=== PATIENT | female | born 1995 | race Caucasian/White ===

== ENCOUNTER 2024-08-05 18:42 | Emergency (ER) | payer SELFPAY ==
--- NOTE | 2024-08-05 19:54 | PC.NURSE ---
NO ANSWER AT ER LOBBY OR OUTSIDE ER TO BE TRIAGE .
--- NOTE | 2024-08-05 20:18 | PC.NURSE ---
NO ANSWER AT ER LOBBY OR OUTSIDE ER.
== END 2024-08-05 21:11 | disposition left against medical advice (07) ==
PROVIDERS: Emergency Provider Emergency Medicine
DX: Z53.21 Procedure and treatment not carried out due to patient leaving prior to being seen by health care provider (principal)

== ENCOUNTER 2025-02-18 15:18 | Emergency (ER) | payer MEDICAID, SELFPAY ==
[2025-02-18 15:45] VITALS: BP 123/82; PULSE 94; RESP 21; TEMP 36.8; O2SAT 98
[2025-02-18 15:47] VITALS: PULSE 79
[2025-02-18 16:01] VITALS: BMI 17.3
[2025-02-18 16:38] LABS: Basophils # (Auto) 0.1 Thou/mm3 (0.0-0.2); Basophils % (Auto) 1 % (0-2.5); Eosinophils # (Auto) 0.0 Thou/mm3 (0.0-0.5); Eosinophils % (Auto) 1 % (0-10); Hematocrit 37.0 % (36.0-46.0); Hemoglobin 12.8 g/dL (12.0-16.0); Immature Granulocytes Auto 0.01 Thou/mm3 (0.00-0.00); Lymphocytes # (Auto) 1.8 Thou/mm3 (1.0-4.8); Lymphocytes % (Auto) 32 % (10-50); Mean Corpuscular HGB Conc 34.6 g/dl (31.0-37.0); Mean Corpuscular Hemoglobin 34.6 pg (25.0-35.0); Mean Corpuscular Volume 100 fL (80-100); Monocytes # (Auto) 0.4 Thou/mm3 (0.0-0.8); Monocytes % (Auto) 8 % (0-12); Neutrophils # (Auto) 3.3 Thou/mm3 (1.8-7.7); Neutrophils % (Auto) 59 % (37-80); Nucleated Red Blood Cell # 0.00 Thou/mm3 (0.00-0.00); Nucleated Red Blood Cell % 0 /100 WBC (0); Platelet Count 579 Thou/mm3 (140-440); RDW Standard Deviation 58.4 fL (36.4-46.3); Red Blood Count 3.70 Miln/mm3 (4.00-5.20); White Blood Count 5.6 Thou/mm3 (3.6-11.0)
[2025-02-18 16:58] LABS: Collection Type, Urine Clean Catch
--- NOTE | 2025-02-18 16:58 | EDNOTE_ITS ---
ED Seizures RME/HPI General Chief Complaint: Seizure Stated Complaint: SEIZURES; PASSING OUT Time Seen by Provider: 02/18/25 15:29 Arrival date/time: 02/18/25 15:18 RME / HPI RME / HPI Narrative: 30 year old female presents to the ED for seizure like activity today. Per at bedside, the patient was sitting watching tv when she suddenly began convulsing for ~ 1 minute. States shortly after she had difficulty staying awake and described the patient as going in and out . The additionally reported the patient was on a 5-day binge and today prior to seizing had drank a beer to prevent going into withdrawals. Patient reports she does not drink often and last drank 3 months ago prior to binge. In the ED only complains of feeling foggy . Denies recent illness, fevers, chills, abdominal pain, n/v/d, or urinary symptoms. Patient reports history of seizures occurring once a month and not currently on medications. Also states she has not consulted with neurologist. Related Data Previous Rx's ?Medication ?Instructions ?Recorded levetiracetam 500 mg tablet 500 mg PO BID #60 tabs 07/03 (Keppra) Allergies Allergy/AdvReac Type Severity Reaction Status Date / Time No Known Allergies Allergy Verified 08/05/24 18:45 Review of Systems Review of Systems Systems Reviewed: All systems reviewed, normal except as documented Past Medical History Past Medical History PSYCHO/SOCIAL: Positive Depression Family History FAMILY HISTORY: Negative Family Psychiatric Problems, Family Respiratory Disorders, Family Cardiac Disorders, Family Gastrointestinal Problems, Family Genitourinary Problems, Family Endocrine Disorders, Family Reproductive Disorders or Family Musculoskeletal Disorders Social History SMOKING STATUS: Current every day smoker ED Exam Narrative Physical exam: Constitutional: Awake, alert, nontoxic, no acute distress HEENT: NC, AT, EOMI Neck: Supple CV: RRR, no m/r/g Lungs: CTAB, no w/r/r, no respiratory distress. Abd: Soft, NT, NT, no HSM noted to palpation Extremities: No deformities, no edema noted Neuro: AAOx3, CN 2-12 GIBL, no acute neuro deficit noted. Skin: Warm, dry, intact Other Other exam information: 1810h: Vital signs have remained stable and has not developed a new symptoms. Patient does not clinically appear to be in alcohol withdrawal. States she last had a seizure 3 months ago and was evaluated at [facility] where she had a head CT that was negative. Patient adds she sometimes has seizures with drinking and while not drinking. I will start on Keppra and have her follow up with neurology. Strict return precautions given. Course Quality Measures none Orders Category Date Time Status Bedside Blood Glucose NOW Care 02/18/25 15:43 Completed Shingle Trimmer NOW Care 02/18/25 15:43 Completed Continuous Pulse Oximetry NOW Care 02/18/25 15:43 Completed EKG (ED ONLY) *Do not use* NOW Care 02/18/25 15:45 Completed Insert IV NOW Care 02/18/25 15:44 Completed Insert IV STAT Care 02/18/25 15:43 Completed EKG (ED Only) Stat Exams 02/18/25 15:45 Ordered Acetaminophen Stat Lab 02/18/25 16:19 Completed CBC Stat Lab 02/18/25 16:19 Completed Comprehensive Metabolic Panel Stat Lab 02/18/25 16:19 Completed Drug Screen,Urine Stat Lab 02/18/25 16:52 Completed HCG Qualitative,Urine Stat Lab 02/18/25 16:52 Completed Magnesium Stat Lab 02/18/25 16:19 Completed Troponin I Stat Lab 02/18/25 16:19 Completed Urinalysis Stat Lab 02/18/25 16:52 Completed levETIRAcetam INJ [Keppra Inj] Med 02/18/25 18:16 Discontinued 1,000 mg IVP X1 ONE Vital Signs Vital signs: Vital Signs Temperature 98.3 F 02/18/25 15:45 Pulse Rate 94 02/18/25 15:45 Respiratory Rate 21 H 02/18/25 15:45 Blood Pressure 123/82 02/18/25 15:45 Pulse Oximetry (%) 98 02/18/25 15:45 Oxygen Delivery Method Room Air 02/18/25 15:45 Pulse ox is 98% on room air which is adequate. Seizure MDM Narrative MDM Narrative:: Carmen Rob am scribing for and in the presence of Dr. Barros. Patient data External records reviewed:: None Clinical information provided by:: patient and spouse Social determinants that could affect healthcare access:: alcohol use Patient has the following chronic illnesses:: Seizures? How is presenting disease/condition affected by chronic disease/condition?: exacerbated by Evaluation data The following diagnostics were reviewed and interpreted by me:: lab results and EKG tracing(s) (02/18/2025 @ 15:37h. Normal sinus rhythm, rate 91, no STEMI. ) Lab and/or radiology exams considered but not ordered:: None Interpretation Summary: elevated transaminases Medications / Prescriptions Medications or Prescriptions considered but not ordered:: None Medication administrations:: Medication Administration History Discontinued Medications Levetiracetam (Levetiracetam Inj 100 Mg/Ml Vial 5ml) 1,000 mg IVP X1 ONE Stop: 02/18/25 18:17 Last Admin: 02/18/25 18:44 Dose: 1,000 mg Documented By: RD None Consultations Consultation(s) initiated? (list below): No Diagnosis Seizure Differential Diagnosis: intractable seizure disorder, febrile convulsion, focal seizure and epileptic seizure Most likely diagnosis given after review of the tests above:: Generalized seizure Hx of alcohol use Admission Indicated Admission indicated?: not indicated Admission Request Was there a request for admission?: No Disposition Plan Disposition Plan: Discharge Discharge Attestation Discharge Attestation: The patient and all family members were given an opportunity to ask questions and understood the discharge instructions. Discharge instructions specifically effects, indications for sooner follow up or return to the emergency department, and the expected course of current diagnosis. Patient condition: Stable Discharge Plan Plan Patient Disposition: HOME (Self Care) Patient condition on transfer: Stable Prescriptions/Referrals Prescriptions/Med Rec: New levetiracetam [Keppra] 500 mg tablet 500 mg PO BID Qty: 60 0RF Referrals: Clinton Valero MD [Primary Care Provider] - In 1 week Mio Saldivar MD [Physician] - In 1 week Problem List Clinical Impression: Generalized seizure, History of alcohol use Patient/Caregiver Discharge Instructions Education Materials: ED Seizure, Recurrent (Adult) Additional Instructions: Avoid driving until seen by neurology for evaluation of your seizures. Call neurology office for outpatient follow-up. Started on Keppra at this time until evaluated by neurology. Print Language: Albanian Stand Alone Forms: Veena Award Info., Patient Portal Info Letter
[2025-02-18 17:02] LABS: Acetaminophen < 2.0 mcg/mL (10.0-20.0); Alanine Aminotransferase 267 U/L (10-49); Albumin, Serum 4.3 gm/dL (3.5-5.0); Albumin/Globulin Ratio 2.0 (1.2-2.2); Alkaline Phosphatase 181 U/L (46-116); Anion Gap 13 (7-16); Aspartate Amino Transferase 491 U/L (0-34); BUN/Creatinine Ratio 10 Ratio (12-20); Bilirubin,Total 0.3 mg/dL (0.3-1.2); Blood Urea Nitrogen < 5 mg/dL (9-23); Calcium 8.7 mg/dL (8.3-10.6); Calcium (Corrected) 8.7 mg/dL (8.5-10.1); Carbon Dioxide 25.1 mMol/L (20.0-31.0); Chloride 99 mMol/L (98-107); Creatinine (Component) 0.5 mg/dL (0.6-1.3); Estimated Creatinine Clearance 124.7 mL/min (>60); Globulin 2.2 gm/dL (2.3-3.5); Glucose 113 mg/dL (74-106); Magnesium 1.6 mg/dL (1.6-2.6); Osmolality,Calculated 272 (275-295); Potassium 4.1 mMol/L (3.4-5.1); Sodium 137 mMol/L (136-145); Total Protein 6.5 gm/dL (5.7-8.2); Troponin I < 0.002 ng/mL (0.0-0.045); eGFR > 60 See Note
[2025-02-18 17:06] LABS: Bilirubin,Urine Negative (Negative); Blood,Urine Negative (Negative); Clarity,Urine Clear (Clear/Hazy); Color,Urine Colorless (Lt Yel-Yel); Glucose, Urine Negative (Negative); Ketones,Urine Negative (Negative); Leukocyte Esterase,Urine Negative (Negative); Nitrite,Urine Negative (Negative); PH,Urine 7.5 (5.0-7.0); Protein,Urine Negative (Neg - Trace); RBC,Urine 1 /hpf (0-3); Specific Gravity,Urine 1.008 (1.001-1.035); Squamous Epithelial Cell,Urine 1 /hpf (0-5); Urobilinogen,Urine Negative mg/dL (0.0-1.0); WBC,Urine 1 /hpf (0-5)
[2025-02-18 17:10] VITALS: BP 109/80; PULSE 79; RESP 17; TEMP 36.8; O2SAT 100
[2025-02-18 17:13] LABS: Amphetamine/Methamp Scrn,U Negative (Negative); Barbiturate Screen,Urine Positive (Negative); Benzodiazepines Screen,Urine Negative (Negative); Benzoylecgonine Screen, Ur Negative (Negative); Fentanyl Screen,Urine Negative (Negative); Opiate Screen,Urine Negative (Negative); THC Screen,Urine Negative (Negative)
[2025-02-18 17:42] LABS: HCG Qualitative,Urine Negative
[2025-02-18] MEDS: levETIRAcetam INJ 100 MG/ML VIAL 5ML 1000 MG IVP (18:44)
--- NOTE | 2025-02-18 19:24 | PC.NURSE ---
BOYFRIEND CALLED AND STATED HE WAS ON THE WAY TO [employer] [facility] (PATIENT).
== END 2025-02-18 19:34 | disposition home or self-care (01) ==
PROVIDERS: Emergency Provider Family Medicine; PCP Family Medicine
DX: R56.9 Unspecified convulsions (principal); F10.90 Alcohol use, unspecified, uncomplicated
CPT/HCPCS: 36415; 80053; 80307; 80329; 81001; 81025; 83735; 84484; 85025; 93005; 96374; 99283; J1953; G0480

== ENCOUNTER 2025-04-10 17:46 | Emergency (ER) | payer MEDICAID, SELFPAY ==
--- NOTE | 2025-04-10 17:56 | XR_ITS ---
Examination: AP chest single view Technique one AP portable upright chest single view April 10, 2025, 1806 hrs. Indications: Seizure today Findings: Normal heart size. No aspiration pneumonia. The osseous structures are intact. Upper thoracic levoscoliosis 12 degrees Impression: Negative for aspiration pneumonia
--- NOTE | 2025-04-10 17:56 | EKG_ITS ---
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
[2025-04-10 17:57] VITALS: BP 112/86; RESP 17; TEMP 36.8; O2SAT 96
--- NOTE | 2025-04-10 17:58 | PD.EDALCOH ---
ED Alcohol RME/HPI General Chief Complaint: Alcohol Stated Complaint: GOING THROUGH ALCOHOL W/D Time Seen by Provider: 04/10/25 17:56 Arrival date/time: 04/10/25 17:46 RME / HPI RME / HPI narrative: 30-year-old female patient came in for evaluation regarding witnessed tonic-clonic seizure lasting for few seconds. Patient is currently taking Keppra. Twice a day 500 mg. Patient told me that she is probably withdrawing from alcohol however her last drink of alcohol was 2 hours ago. She is trying to stop drinking alcohol and finding alcohol withdrawal place/center. Denies any homicidal or suicidal ideation. On my initial evaluation patient is alert and oriented x 3. Related Data Previous Rx's ?Medication ?Instructions ?Recorded levetiracetam 500 mg tablet 500 mg PO BID #60 tabs 02/18/25 (Keppra) Allergies Allergy/AdvReac Type Severity Reaction Status Date / Time No Known Allergies Allergy Verified 04/10/25 17:53 Review of Systems Review of Systems Narrative Review of Systems: Review of system reviewed and within normal limits except mentioned in HPI ED Exam Narrative Physical exam: VITAL SIGNS: Reviewed. GENERAL APPEARANCE: Alert and interactive, follows commands, no acute distress, HEAD AND FACE: Non-traumatic. ENT: PERRL, pink conjunctivitis, eyelid no trauma, Mucous membrane moist. NECK: Supple, nontender, no nuchal rigidity. CHEST: No tenderness, no crepitus, no paradoxical movement, no retractions. LUNGS: Clear, well ventilated, symmetric, no rales, no wheezing, no ronchi, no stridor, good breath sounds bilaterally. HEART: Regular rate, regular rhythm, no murmur, no gallops. ABDOMEN: Soft, positive bowel sounds, nondistended, no guarding, nontender, no rebound, no masses, RECTAL: Deferred. GENITAL: Deferred. NEUROLOGICAL: Gross motor function intact sensory function intact, Appropriate for age. MUSCULOSKELETAL: low back nontender, full range of motion. EXTREMITIES: Nontender, full range of motion. SKIN: Color pink, dry, no rash, no lacerations, no abrasions, no contusions. LYMPHATICS: Deferred. Course Quality Measures none Orders Category Date Time Status EKG (ED ONLY) *Do not use* NOW Care 04/10/25 17:56 Completed EKG (ED Only) Stat Exams 04/10/25 17:56 Draft XR chest 1V Stat Exams 04/10/25 17:56 Completed Alcohol, Blood Medical Stat Lab 04/10/25 18:00 Completed CBC Stat Lab 04/10/25 18:00 Completed Comprehensive Metabolic Panel Stat Lab 04/10/25 18:00 Completed Drug Screen,Urine Stat Lab 04/10/25 17:58 Ordered Partial Thromboplastin Time Stat Lab 04/10/25 18:00 Completed UA, C/S IF [Urinalysis, C/S if Indicated] Stat Lab 04/10/25 17:57 Ordered Midazolam Inj [Versed Inj] Med 04/10/25 17:56 Discontinued 2 mg IVP X1 ONE Ringers Lactated 1000 ml [Lactated Ringers] 1,000 ml Med 04/10/25 17:57 Discontinued IV 999 mls/hr Vital Signs Vital signs: Vital Signs Temperature 98.2 F 04/10/25 17:57 Respiratory Rate 17 04/10/25 17:57 Blood Pressure 112/86 H 04/10/25 17:57 Pulse Oximetry (%) 96 04/10/25 17:57 Oxygen Delivery Method Room Air 04/10/25 17:57 Discharge Plan Plan Patient Disposition: HOME (Self Care) Discharge Disposition comment: Stable Prescriptions/Referrals Prescriptions/Med Rec: No Action levetiracetam [Keppra] 500 mg tablet 500 mg PO BID Qty: 60 0RF Referrals: No Primary/Family,Physician [Primary Care Provider] - In 1 week Problem List Clinical Impression: Breakthrough seizure, Alcoholic intoxication Patient/Caregiver Discharge Instructions Discharge Activity: activity as tolerated Education Materials: ED Alcohol Intoxication Additional Instructions: Thank you for the opportunity for serving you today. You are stable for discharged . You are advised to: Follow-up with your PCP in 1 to 2 days Return to ED for worsening of symptoms Increase oral fluids Please continue taking your Keppra Refrain from drinking alcohol. Print Language: [place] Stand Alone Forms: Veena Award Info., Patient Portal Info Letter Alcohol MDM Narrative MDM Narrative: 30-year-old female patient came in for evaluation regarding witnessed tonic-clonic seizure lasting for few seconds. Patient is currently taking Keppra. Twice a day 500 mg. Patient told me that she is probably withdrawing from alcohol however her last drink of alcohol was 2 hours ago. She is trying to stop drinking alcohol and finding alcohol withdrawal place/center. Denies any homicidal or suicidal ideation. On my initial evaluation patient is alert and oriented x 3. Patient was given Versed and IV fluids, on reevaluation patient was noted to be alert oriented, no recurrence of seizure, patient's workup significant for alcohol level of 324. Patient was picked up by her mom. Patient laboratory workup all came back unremarkable except for mentioned earlier. Chest x-ray came back normal EKG showed sinus rhythm, ventricular at old 97 bpm, no ST segment elevation or depression noted. Patient is stable discharged home ambulatory. Patient data External records reviewed:: None Clinical information provided by:: patient Social determinants that could affect healthcare access:: alcohol use Patient has the following chronic illnesses:: Seizure disorder How is presenting disease/condition affected by chronic disease/condition?: exacerbated by Evaluation data The following diagnostics were reviewed and interpreted by me:: lab results, radiology exam(s) and EKG tracing(s) Lab and/or radiology exams considered but not ordered:: None Interpretation Summary: See results MDM Medications / Prescriptions Medications or Prescriptions considered but not ordered:: None Medication administrations:: Medication Administration History Discontinued Medications Lactated Ringer's (Lactated Ringers) 1,000 mls @ 999 mls/hr IV .Q1H1M ONE Stop: 04/10/25 18:57 Last Infusion: 04/10/25 19:54 Dose: Infused Documented By: Admin: 04/10/25 18:25 Dose: 999 mls/hr Documented By: SUZANNE Midazolam HCl (Midazolam Inj 1 Mg/Ml Vial 2 Ml) 2 mg IVP X1 ONE Stop: 04/10/25 17:57 Last Admin: 04/10/25 18:25 Dose: 2 mg Documented By: SUZANNE Versed, IV fluids Consultations Consultation(s) initiated? (list below): No Diagnosis Differential diagnosis alcohol: alcohol intoxication, alcohol withdrawal syndrome, alcohol withdrawal seizure and other (Breakthrough seizure) Most likely diagnosis given after review of the tests above:: Breakthrough seizure, alcoholic intoxication Admission Indicated Admission indicated?: not indicated Admission Request Was there a request for admission?: No Disposition Plan Disposition Plan: Discharge Discharge Attestation Discharge Attestation: The patient and all family members were given an opportunity to ask questions and understood the discharge instructions. Discharge instructions specifically effects, indications for sooner follow up or return to the emergency department, and the expected course of current diagnosis. Patient condition: Stable
[2025-04-10 18:08] LABS: Basophils # (Auto) 0.0 Thou/mm3 (0.0-0.2); Basophils % (Auto) 1 % (0-2.5); Eosinophils # (Auto) 0.0 Thou/mm3 (0.0-0.5); Eosinophils % (Auto) 0 % (0-10); Hematocrit 41.5 % (36.0-46.0); Hemoglobin 14.4 g/dL (12.0-16.0); Immature Granulocytes Auto 0.02 Thou/mm3 (0.00-0.00); Lymphocytes # (Auto) 2.1 Thou/mm3 (1.0-4.8); Lymphocytes % (Auto) 30 % (10-50); Mean Corpuscular HGB Conc 34.7 g/dl (31.0-37.0); Mean Corpuscular Hemoglobin 32.9 pg (25.0-35.0); Mean Corpuscular Volume 95 fL (80-100); Monocytes # (Auto) 0.6 Thou/mm3 (0.0-0.8); Monocytes % (Auto) 8 % (0-12); Neutrophils # (Auto) 4.1 Thou/mm3 (1.8-7.7); Neutrophils % (Auto) 60 % (37-80); Nucleated Red Blood Cell # 0.00 Thou/mm3 (0.00-0.00); Nucleated Red Blood Cell % 0 /100 WBC (0); Platelet Count 320 Thou/mm3 (140-440); RDW Standard Deviation 51.0 fL (36.4-46.3); Red Blood Count 4.38 Miln/mm3 (4.00-5.20); White Blood Count 6.8 Thou/mm3 (3.6-11.0)
[2025-04-10 18:24] LABS: Partial Thromboplastin Time 26.2 Seconds (22.0-36.0)
[2025-04-10] MEDS: MIDAZOLAM INJ 1 MG/ML VIAL 2 ML 2 MG IVP (18:25)
[2025-04-10] MEDS: RINGERS LACTATED 1000 ML 1,000 ML 999 ML IV (18:25)
[2025-04-10 18:43] LABS: Alanine Aminotransferase 65 U/L (10-49); Albumin, Serum 4.4 gm/dL (3.5-5.0); Albumin/Globulin Ratio 2.1 (1.2-2.2); Alcohol, Blood Medical 324.4 mg/dL (0-10.0); Alkaline Phosphatase 93 U/L (46-116); Anion Gap 14 (7-16); Aspartate Amino Transferase 90 U/L (0-34); BUN/Creatinine Ratio 8 Ratio (12-20); Bilirubin,Total 0.4 mg/dL (0.3-1.2); Blood Urea Nitrogen < 5 mg/dL (9-23); Calcium 8.6 mg/dL (8.3-10.6); Calcium (Corrected) 8.6 mg/dL (8.5-10.1); Carbon Dioxide 25.5 mMol/L (20.0-31.0); Chloride 100 mMol/L (98-107); Creatinine (Component) 0.6 mg/dL (0.6-1.3); Globulin 2.1 gm/dL (2.3-3.5); Glucose 138 mg/dL (74-106); Osmolality,Calculated 276 (275-295); Potassium 3.7 mMol/L (3.4-5.1); Sodium 139 mMol/L (136-145); Total Protein 6.5 gm/dL (5.7-8.2); eGFR > 60 See Note
--- NOTE | 2025-04-10 18:55 | PC.NURSE ---
Pt's mom came out stating that pt is having a seizure. Pt appeared to be convulsing however quickly stopped once we said we were going to give her some versed, and her vitals remained normal. Versed given and LR started
--- NOTE | 2025-04-10 20:00 | PC.NURSE ---
PT UP AND OUT OF BED WALKING OUT OF ROOM. PT SHOUTING I WANT TO GO HOME I DONT WANT TO BE HERE , PT CUSSING OUT STAFF WHEN REDIRECTED BACK INTO ROOM. PT EDUCATED ON IMPORTANCE OF STAYING IN BED AND SAFTEY OF DISCHARGING WITHOUT FAMILY MEMBER. PT CALLED MOTHER JAY WHO STATED SHE WOULD COME TRAVEL ACCOMMODATION INSPECTOR PT. MD MCCORMACK AND MU INFORMED AND STATED THEY WILL DC PT WHEN MOTHER WAS PRESENT TO TAKE PT.
--- NOTE | 2025-04-10 20:45 | PC.NURSE ---
PT'S MOTHER HERE AND STATES WILL BE RESPONSIBLE IN TAKING PT HOME. RESEARCH RN SPEC OMAR STATED ITS OKAY TO DC, MOTHER INFORMED OF ALL DC INSTRUCTIONS. MOTHER VERBALLY STATES SHE UNDERSTANDS. PT REFUSED TO HAVE VITALS TAKEN AT TIME OF DC. PT STATED I JUST WANT THIS IV REMOVED, AND I WANT TO LEAVE. IV REMOVED. PT AMBULATED WITH A STEADY GAIT. NAD. PT AOX3.
== END 2025-04-10 20:50 | disposition home or self-care (01) ==
PROVIDERS: Nurse Practitioner Family; Emergency Provider Emergency Medicine
DX: G40.89 Other seizures (principal); F10.129 Alcohol abuse with intoxication, unspecified; Y90.8 Blood alcohol level of 240 mg/100 ml or more
CPT/HCPCS: 36415; 71045; 80053; 80307; 80320; 81001; 85025; 85730; 93005; 96361; 96374; 99283; J2250; J7120; G0480